=== PATIENT | male | born 1975 | race Caucasian/White ===

== ENCOUNTER 2020-08-11 12:42 | Emergency (ER) | payer SELFPAY ==
--- NOTE | ~2020-08-11 | CT_ITS ---
EXAMINATION: CT abdomen pelvis w con EXAM DATE: 08/11/2020 14:02 INDICATION: Nausea, upper abdominal pain. History gallstones. TECHNIQUE: Spiral CT of the abdomen and pelvis was performed following intravenous injection of 100 m L Omnipaque 350. Axial, coronal and sagittal images were reviewed. The dose-length product (DLP) fo r this examination was 271.11 mGy-cm. The exposure was tailored according to patient size (auto mA e xposure control), and iterative reconstruction (ASIR) was used as additional dose reduction technique . There is no prior study for comparison. Correlation was made with gallbladder ultrasound 01/05/2012 . FINDINGS: No bladder is moderately distended, has indistinct wall with mild adjacent inflammation, an d pericholecystic fluid. Appearance is consistent with acute cholecystitis. Noncalcified gallstones w ere confirmed on recent ultrasound. There is a nodule right lower paraspinal location measuring 1.9 cm at the T11 level. 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 Therefore recommend conservative management with follo w-up rather than biopsy. The liver, spleen, adrenal glands and pancreas are unremarkable. Portal and splenic veins are patent . Kidneys enhance symmetrically. There is no hydronephrosis. There is 1.5 cm right renal cyst. The prostate is unremarkable. The bladder is unremarkable. There is no retroperitoneal or pelvic lymph adenopathy. There is mild scattered arteriosclerotic disease. The appendix is not positively visualized. There is no pericecal inflammatory change to suggest appe ndicitis. The stomach and small bowel are unremarkable. There is expected amount of colonic stool. No free intraperitoneal gas. The heart is normal in size. There are no pericardial or pleural e ffusions. The lung bases are unremarkable. There are no osteoblastic or osteolytic lesions identifi ed. IMPRESSION: 1. Findings consistent with acute cholecystitis. 2. Incidental right paraspinal mass, suspect that this is benign given evidence of it being present on a lumbar x-ray in 2005. Are there any prior CT scans at outside institution for correlation? If n ot, consider noncontrast chest CT in 3-6 months. Reviewed, dictated and finalized at location [facility]. IMPRESSION: 1. Findings consistent with acute cholecystitis. 2. Incidental right paraspinal mass, suspect that this is benign given evidenc e of it being present on a lumbar x-ray in 2005. Are there any prior CT scans at outside institution for correlation? If not, consider noncontrast chest CT i n 3-6 months.
[2020-08-11 12:46] VITALS: BP 133/85; PULSE 82; RESP 18; TEMP 36.2; O2SAT 100
[2020-08-11 13:10] VITALS: BP 152/89; PULSE 90; RESP 18; O2SAT 100
[2020-08-11 13:26] LABS: Basophils Percent Auto 0.6 % (0.2-1.2); Eosinophils Absolute Auto 0.1 K/mm3 (0-0.3); Eosinophils Percent Auto 2.1 % (0-4.4); Hematocrit 42.6 % (42.0-52.0); Hemoglobin 14.8 g/dL (14.0-18.0); Immature Granulocyte Absolute 0.01 K/mm3 (0.00-0.031); Immature Granulocyte Percent A 0.2 % (0-0.5); Lymphocytes Absolute Auto 1.51 K/mm3 (0.9-3.2); Lymphocytes Percent Auto 31.9 % (18.3-44.2); Mean Corpuscular HGB Conc 34.7 g/dl (32-36); Mean Corpuscular Volume 86.2 fl (80-100); Monocytes Absolute Auto 0.5 K/mm3 (0.1-0.6); Monocytes Percent Auto 9.9 % (2.6-8.5); Neutrophils Absolute Auto 2.6 K/mm3 (1.3-6.7); Neutrophils Percent Auto 55.3 % (45.5-73.1); Platelet Count Result 178 k/mm3 (150-375); Red Blood Count 4.94 M/mm3 (4.6-6.20); Red Cell Distribution Width 12.4 % (11.5-14.5); White Blood Count 4.7 K/mm3 (4.5-10.0)
[2020-08-11 13:28] LABS: Add Urine Microscopic? NO; Appearance Urine Clear (Clear); Bilirubin Urine Negative (Negative); Blood Urine Negative (Negative); Color Urine Yellow (Yellow); Glucose Urine UA Negative (Negative); Ketones Urine Negative (Negative); Leukocyte Esterase Ur Negative LEU/UL (Negative); Nitrate Urine Negative (Negative); Protein Urine Negative (Negative); Specific Grav Ur 1.005 (1.001-1.035); Urobilinogen Urine Negative mg/dL (<2.0)
[2020-08-11 13:51] LABS: Alanine Aminotransferase 62 U/L (4-50); Albumin Level 4.4 g/dL (3.5-5.1); Alkaline Phosphatase 80 U/L (38-126); Anion Gap 6 mmol/L (8-16); Aspartate Amino Transferase 153 U/L (17-59); Bilirubin,Total 1.2 mg/dL (0.2-1.3); Blood Urea Nitrogen 10 mg/dL (9-20); Calcium 9.5 mg/dL (8.4-10.2); Carbon Dioxide 35 mmol/L (22-30); Chloride 100 mmol/L (98-107); Estimated CRCL calculation 90 ml/min; Estimated Glomerular Filt Rate > 60; Glucose 122 mg/dL (75-110); Lipase 53 U/L (23-300); Potassium 3.4 mmol/L (3.4-5.0); Sodium 141 mmol/L (137-145)
[2020-08-11] MEDS: SODIUM CHLORIDE 0.9% IV 1,000 ML 999 ML IV CONT (13:52)
[2020-08-11] MEDS: FAMOTIDINE 20 MG/2 ML VIAL IV PUSH (13:52)
--- NOTE | 2020-08-11 13:58 | PC.NURSE ---
Pt medicated per provider order, updated on wait times and plan of care.
[2020-08-11 14:00] VITALS: BP 133/75; PULSE 92; RESP 18; O2SAT 100
--- NOTE | 2020-08-11 14:07 | ED.GENADULT ---
HPI - General Adult General Chief complaint: Abdominal Pain <Ravi Lindsey PA-C - Last Filed: 08/11/20 16:13> Stated complaint: abd pain gallbladder flare up <TRAVIS Peters Last Filed: 08/11/20 16:13> Time Seen by Provider: 08/11/20 13:04 <TRAVIS Peters Last Filed: 08/11/20 16:13> Source: patient <TRAVIS Peters Last Filed: 08/11/20 16:13> Mode of arrival: ambulatory <TRAVIS Peters Last Filed: 08/11/20 16:13> Limitations: no limitations <Ravi Lindsey PA-C Last Filed: 08/11/20 16:13> History of Present Illness HPI narrative: Patient is a 45-year-old male who presents with right upper quadrant abdominal pain that began after eating on Monday patient notes aching pain that has persisted but gotten better patient washes diet over the weekend but again after eating today noted increasing pain patient denies any fever chills nausea vomiting at this time. . Patient also notes intermittent palpitations but denies any chest pain dyspnea or other complaints presents in no distress <Ravi Lindsey PA-C Last Filed: 08/11/20 16:13> Related Data Allergies/adverse reactions: Allergies Allergy/AdvReac Type Severity Reaction Status Date / Time No Known Allergies Allergy Mild Verified 04/11/09 12:24 <Ravi Lindsey PA-C Last Filed: 08/11/20 16:13> Review of Systems Review of Systems: All systems reviewed & are unremarkable except as noted in HPI and below <Ravi Lindsey PA-C Last Filed: 08/11/20 16:13> [facility] Past Medical History Medical History: Medical History Anxiety <TRAVIS Peters Last Filed: 08/11/20 16:13> Surgical History Surgical History: Surgical History No significant past surgical history <TRAVIS Peters Last Filed: 08/11/20 16:13> Family History Family History: Family History Other No pertinent family history <TRAVIS Peters Last Filed: 08/11/20 16:13> Social History Social History: Social History Smoking status: Former smoker Tobacco type: cigarettes Alcohol intake: current Alcohol use details: No alcohol use in the past 2 weeks. Typically drinks a few drinks 5 x's per week. Substance use type: does not use Living arrangements: with family Occupation/Education: other Additional occupation/education comments: Employment has varied over the COVID pandemic. 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 Gender identity (if verbalized by the patient): Male <TRAVIS Peters Last Filed: 08/11/20 16:13> Exam Narrative: Exam Narrative: GENERAL: Well-appearing, well-nourished, and in no acute distress. HEAD: Normocephalic, atraumatic. EYES: PERRLA and EOMI. ENT: Nares clear, no rhinorrhea or epistaxis. Mucous membranes moist. CHEST: Clear to auscultation. No respiratory distress. No wheezes rales or rhonchi HEART: Regular rate and rhythm. No murmur heard. Normal peripheral pulses. ABDOMEN: Soft, right-sided abdominal tenderness no rebound or guarding, nondistended, normal active bowel sounds. EXTREMITIES: Normal range of motion. No edema. SKIN: Warm, dry, no rash. NEURO: No focal deficits. Alert and oriented x3. PSYCH: Normal mood and affect. <TRAVIS Peters Last Filed: 08/11/20 16:13> Course Course Emergency Course: Patient with acute cholecystitis case was reviewed by practitioner for the surgery team who would like the patient to be sent home on Levaquin for 5 days with outpatient follow-up and to return if symptoms worsen patient is aware of this plan and agrees with this plan was seen twice by the surgery team in the ER <TRAVIS Peters
[2020-08-11 15:10] VITALS: BP 122/68; PULSE 87; RESP 18; O2SAT 100
[2020-08-11] MEDS: MAG HYDROX/AL HYDROX/SIMETH 30 ML UDC PO (15:19)
[2020-08-11] MEDS: LIDOCAINE HCL 2% VISC SOLN 15 ML UDC 20 ML PO (15:19)
--- NOTE | 2020-08-11 15:36 | PM.CNGS ---
Assessment and Plan Assessment and plan (1) Acute cholecystitis: Code(s): K81.0 - Acute cholecystitis Status: Acute Assessment and Plan: CT scan reviewed and discussed with the patient in detail, which showed acute cholecystitis. I also reviewed the RUQ ultrasound from 2011, which showed cholelithiasis. WBC normal and AST/ALT just mildly elevated. The patient is no longer having any abdominal pain and is feeling much better. I discussed the pathophysiology of gallbladder disease with the patient and the treatment options at this point. I discussed the recommendation of proceeding with a laparoscopic cholecystectomy, possible open. Description of the procedure, risks, benefits, expected outcomes, and expected recovery were discussed with the patient in detail. He is very anxious about the thought of having surgery and would like to avoid surgery if at all possible. I discussed the risks of treating this with antibiotics, including future complications, recurrent symptoms, failure of outpatient antibiotic treatment, etc. The patient understands this and wishes to have time to consider surgery. I spoke with Dr. Pompa and discussed the case and plan of care. He recommended sending the patient home on a 5-day course of Levaquin and follow-up with Dr. Pompa in the office in the next week to discuss surgery. I gave him our packet for information regarding a laparoscopic cholecystectomy and low-fat diet information sheet. I instructed the patient to strictly adhere to the low fat diet. We discussed that if his abdominal pain returns, he does not tolerate a diet, or he develops a fever, then he needs to call the office or return to the ER. I discussed all of this with the ER provider as well. (2) Paraspinal mass: Code(s): R22.2 - Localized swelling, mass and lump, trunk Status: Acute Assessment and Plan: Incidentally noted is a 1.9 cm paraspinal nodule at the level of T11. Discussed these findings with the patient and that this appears benign, but would recommend repeat noncontrast chest CT scan in 3-6 months. Patient does not have a PCP. He was instructed to establish care with a PCP. He states he is planning on moving out of state in 1 month and will likely find a PCP there once he has moved. Additional Plan I have discussed the patient's case and plan of care with Dr. Pompa. History of Present Illness Consult details Consult date: 08/11/20 Reason for consult: other (Acute cholecystitis) Requesting physician: Ravi Lindsey PA-C Narrative: This is a 45-year-old male who presented to the ER with complaints of epigastric and LUQ abdominal pain. He reports having a history of known gallstones. In 2011, he had an onset of RUQ abdominal pain and was seen in the ER. He had an ultrasound that showed gallstones and was told to follow-up with a surgeon. He did follow up with general surgery here at [place] at that time, and opted out of surgery. Since then, he has followed a low fat diet fairly strictly. He reports that at times in the past 9 years, he has had mild RUQ abdominal pain that resolves quickly and spontaneously. This is rare and he has not been seen for any episodes since 2011. He reports that Monday, 4 days ago, he had eaten sushi for dinner and had an onset of RUQ abdominal pain following his meal. This was more severe than in the past and kept him awake throughout the night. His abdominal pain continued through until Monday, when it finally subsided. He had only eaten a small amount of fruit and applesauce in that timeframe. Today, he ate some cream of wheat with maple syrup and his pain returned today. The pain seemed to be also in the epigastric and LUQ area this time. No nausea or vomiting. No fever or chills. Due to the unrelenting pain, he presented to the ED. Labs showed a normal WBC count, normal lipase, and mildly elevated AST and ALT, otherwise unremarkable. CT scan of the abdomen and pelvis showed the gallbla
--- NOTE | 2020-08-11 16:03 | PC.NURSE ---
LASHAWN singh at bedside for results.
[2020-08-11 16:06] VITALS: BP 118/75; PULSE 78; RESP 18; O2SAT 100
== END 2020-08-11 16:06 | disposition home or self-care (01) ==
PROVIDERS: Emergency Provider Emergency Medicine
DX: K81.0 Acute cholecystitis (principal); R22.2 Localized swelling, mass and lump, trunk; Z87.891 Personal history of nicotine dependence
CPT/HCPCS: 36415; 74177; 80053; 81003; 83690; 85025; 96365; 96375; 99284; A9270; J0131; J7030; Q9967